=== PATIENT | male | born 1960 | race Caucasian/White ===

== ENCOUNTER → 2016-11-03 | Outpatient (CLI) | payer BC ==
[~2016-11-03] MED LIST: ACETAMINOPHEN PO; AMLODIPINE BESY10 MG PO; AMOXICILLIN500 M1 PO; FISH OIL 1,0001 CA2 PO; FISH OIL 1,001000 M1 PO; FLEXERIL10 MG PO; KETOPROFEN PO; LEVAQUIN; LUNESTA1 MG PO; MULTI VITAMIN1 EACH PO; MULTI-DAY VITAM1 TAB PO; NORVASC PO; PHENERGAN25 MG PO; SEROQUEL50 MG PO; VIAGRA50 MG PO; VIT E PO; VITAL-D RX TABL1 TAB PO; VITAMIN C500 MG/15 PO; VITAMINS
--- NOTE | ~2016-11-03 | CT138 ---
[facility] A Service of [facility] & [facility] [place] RADIOLOGY TEXT RESULTS PATIENT: NAM HERNANDEZ LOCATION: [facility] : 58 UNIT #: [id number] AGE: [address]: Rudolph Aranda MD SEX: M ORDER DR: [id number] [address] [address] [id number] O MR#: [id number] Acc #: [id number] NAME: NAM HERNANDEZ : 1960 SEX: M STUDY DATE/TIME: 11/03/2016 13:11 UNIT: [facility] ROOM: STUDY DESCRIPTION: CT Lung screening initial Attending Physician: Rudolph Aranda M.D. Referring Physician: Rudolph Aranda M.D. Ordering Physician: Rudolph Aranda M.D. Primary Care Physician: Sunil Sanchez M.D. MEDICAL IMAGING REPORT This report is preliminary unless electronic signature is present. EXAM CT chest INDICATIONS Lung cancer screening. 55-year-old male is a current smoker with a 37.5-pack-year history of smoking. TECHNIQUE CT of the thorax without contrast. Coronal and sagittal reconstructions were obtained. Exam was performed as a low-dose chest CT utilizing lung cancer screening protocol. CTDI volume 2.96 mGy. DLP 139.31 mGy/cm. This CT exam was performed with one or more of the following radiation dose reduction techniques: Automatic exposure control, adjustment of mA and/or kV according to patient size, and iterative reconstruction. COMPARISON Chest radiograph 05/06/2016. FINDINGS This is a benign lung cancer screening. There is a cluster of small micronodules (2-3 mm in diameter) in the medial aspect of the left upper lobe. There is some associated peripheral mucous plugging in this area. This is most commonly seen associated with an acute small airways infection. No suspicious pulmonary findings. There is a benign granuloma in the left lower lobe. No focal consolidation. No pathologically enlarged mediastinal or hilar lymph nodes. No pericardial or pleural effusion. There is background centrilobular and paraseptal emphysema. [facility] A Service of [facility] & [facility] [place] RADIOLOGY TEXT RESULTS PATIENT: NAM HERNANDEZ LOCATION: [facility] : 58 UNIT #: [id number] AGE: [address]: Rudolph Aranda MD SEX: M ORDER DR: IMPRESSION 1. Benign lung cancer screening. 2. Focal area of bronchial wall thickening and peripheral mucous plugging with associated tree-in-bud nodularity in the medial left lower lobe. This is most consistent with a small airway infection. 3. Paraseptal and centrilobular emphysema. Dictated by... Archie Corrales M.D. THIS IS AN ELECTRONICALLY VERIFIED REPORT Archie Corrales M.D. at 11/04/2016 4:15 PM RPC/arely TD: 11/03/2016 22:15 JOB #: [id number] MEDICAL IMAGING REPORT Page 1 of 1
== END | disposition home or self-care (01) ==
LOC: SCT 10-20 11:00
DX: F17.210 Nicotine dependence, cigarettes, uncomplicated (principal)
CPT/HCPCS: G0297